=== PATIENT | female | born 1990 | race Caucasian/White ===

== ENCOUNTER 2017-08-27 21:02 | Emergency (ER) | payer OTHER ==
[~2017-08-27] VITALS: Ht 180.3 cm; Wt 74.8 kg
[2017-08-27 21:12] VITALS: BP 135/90; PULSE 77; RESP 12; TEMP 97.8; O2SAT 98
[2017-08-27 21:40] VITALS: BP 133/88; PULSE 72; RESP 15; TEMP 98.6; O2SAT 98
== END 2017-08-27 21:40 | disposition home or self-care (01) ==
LOC: SED 21:02
DX: H60.91 Unspecified otitis externa, right ear (principal); Z88.2 Allergy status to sulfonamides; Z88.1 Allergy status to other antibiotic agents; Z90.49 Acquired absence of other specified parts of digestive tract
CPT/HCPCS: 99283